=== PATIENT | male | born 1970 | race African-American/Black ===

== ENCOUNTER 2022-04-01 23:27 | Inpatient (IN) | payer MEDICARE, OTHER, SELFPAY ==
--- NOTE | ~2022-04-01 | MR_ITS ---
EXAMINATION: MR MRCP wo/w con/w 3D wo ind DATE: 04/02/2022 12:10 INDICATION: Choledocholithiasis. Right upper quadrant abdominal pain. TECHNIQUE: Magnetic resonance imaging (MRI) of the abdomen was performed without and with 20 mL Multi Rayshawn intravenous contrast. Sequences included coronal T2-weighted FS FSE, coronal T2-weighted FSE, a xial T1-weighted LAVA, coronal FS FIESTA, axial dual-echo T1-weighted SPGR, coronal lava-FLEX, sagitt al T2-weighted FSE, axial T2-weighted FSE, and axial DWI. Thick-slab T2-weighted FSE images were obta ined for magnetic resonance cholangiopancreatography (MRCP). Maximum intensity projection 3-D reconst ructions of the volumetric data were created by the technologist. Postcontrast sequences included cor onal LAVA-flex and time course of axial T1-weighted LAVA. COMPARISON: CT 04/02/2022 FINDINGS: ABDOMEN MRI: The liver demonstrates periportal edema. The gallbladder is distended and contains sludg e. Gallbladder wall thickening is noted. There is fat stranding around the gallbladder. The spleen, p ancreas, and adrenal glands are normal. There are cysts in the kidneys measuring up to 9 mm on the le ft. There are no dilated loops of bowel. There are no pathologically enlarged lymph nodes. There is n o free intraperitoneal fluid. ABDOMEN MRCP: The common duct is normal in size and measures 6 mm. There is no choledocholithiasis. IMPRESSION: 1. Acute cholecystitis. 2. Normal common duct. No choledocholithiasis. Reviewed, dictated and finalized at location B.
--- NOTE | ~2022-04-01 | XR_ITS ---
EXAMINATION: XR chest 1V portable DATE: 04/02/2022 01:05 INDICATION: Dyspnea. Chest pain. TECHNIQUE: frontal view of the chest was obtained. COMPARISON: Chest CT dated 04/02/2022 FINDINGS: Right middle lobe opacity in the medial right lower lung zone with obscuration of the right heart bor karthikeyan with appearance on CT favoring atelectasis over pneumonia. No pleural effusion or pneumothorax. T he cardiomediastinal silhouette is within normal limits for AP technique. IMPRESSION: 1. Right middle lobe opacities with appearance on CT favoring atelectasis over pneumonia. Reviewed, dictated and finalized at location A.
--- NOTE | ~2022-04-01 | CT_ITS ---
EXAMINATION: CTA chest PE abdomen pel DATE: 04/02/2022 02:28 INDICATION: RUQ pain, SOB from pain, nausea, distention TECHNIQUE: Computed tomography angiography (CTA) of the chest was performed with 100 mL Omnipaque-350 intravenous contrast timed to evaluate the pulmonary arteries, followed by portal venous phase imagi ng of the abdomen and pelvis. Coronal maximum intensity projection 3D-reconstructions were created by the technologist. The dose-length product (DLP) was 2369.93 mGy-cm. Automated exposure control and i terative reconstruction technique were employed. COMPARISON: None. FINDINGS: CHEST: Lung parenchyma and airways: Volume loss and bronchiectasis in the right middle lobe. Scattered tree- in-bud opacities. Pleura: Unremarkable. Thoracic inlet, axillae and chest wall: Unremarkable. Thoracic aorta: Normal. Mediastinum: Normal. Heart and pericardium: Normal. Coronary artery calcifications: Absent. Thoracic bones: No acute osseous finding. Pulmonary arteries: Study quality: Adequate. No pulmonary emboli detected. ABDOMEN/PELVIS: Liver: Enlarged. Mild intrahepatic duct dilation. Biliary/Gallbladder: Dilated bladder with wall edema and hyperemia, as well as surrounding inflammato ry change no stone identified. No bile duct dilation. Pancreas: No mass or duct dilation. Spleen: Multiple hypodensities may represent cysts or hemangiomas Adrenals:No mass. Kidneys: Left upper pole cyst. Subcentimeter left lower pole hypodensity, too small to characterize. No suspicious mass, hydronephrosis, or calcification. GI tract: Mild antral wall edema, likely reactive to the gallbladder process No small or large bowel dilation. Normal appendix. Diverticulosis without diverticulitis. Mesentery/Peritoneum: No ascites, mass, or free air. Retroperitoneum: No mass. Pelvis: Bladder wall thickening, likely secondary to outlet compromise from prostatomegaly. Soft Tissues: Soft tissues and body wall unremarkable. Abdominopelvic bones: No acute osseous finding. IMPRESSION: No CT evidence of acute pulmonary embolus. Acute cholecystitis. Pulmonary opacities as can be seen wi th atypical infection (MAC, TB, fungal), ABPA, airways disease (CF, bronchiectasis), and aspiration. Discrepancy with the preliminary report, regarding the presence of tree-in-bud opacities in the lungs , reported telephonically to Dr. Gannon by Dr. Almanza at 9:41 PM on 04/02/2022. Reviewed, dictated and finalized at location K. IMPRESSION: No CT evidence of acute pulmonary embolus. Acute cholecystitis. Pulmonary opaci ties as can be seen with atypical infection (MAC, TB, fungal), ABPA, airways di sease (CF, bronchiectasis), and aspiration. Discrepancy with the preliminary report, regarding the presence of tree-in-bud opacities in the lungs, reported telephonically to Dr. Gannon by Dr. Almanza at 9:4 1 PM on 04/02/2022.
[2022-04-01 23:41] VITALS: BP 151/84; PULSE 89; RESP 20; TEMP 36.8; O2SAT 97
[2022-04-02] VITALS (26 sets, daily range): BP systolic 127–154; BP diastolic 70–83; PULSE 57–85; RESP 17–32; TEMP 35.8–36.7; O2SAT 79–100; BMI 42.3
--- NOTE | 2022-04-02 00:27 | ED.ABDPAIN ---
HPI - Abdominal Pain General Chief Complaint: Abdominal Pain Stated Complaint: RUQ pain, back pain Time Seen by Provider: 04/02/22 00:23 Source: RN notes reviewed History of Present Illness HPI narrative: Patient presents emergency room from home for abdominal pain. Patient states for the past 2 days has had pain in his right upper abdomen that radiates around to his back. Pain is described as sharp and stabbing and makes patient feel short of breath he states the pain is worse when he takes a deep breath. He denies having any fevers or chills he denies any nausea vomiting or diarrhea. He states that the pain has been constant for the past 2 days he states that he went to [facility] yesterday had a CT scan and lab work that was all normal on him at that time states he took Tylenol earlier this evening for the pain Related Data Home Medications Medication Instructions Recorded Confirmed metformin 1,000 mg tablet mg 04/02/22 methocarbamol 750 mg tablet mg 04/02/22 pantoprazole 40 mg tablet,delayed mg PO 04/02/22 release sildenafil 100 mg tablet mg 04/02/22 valsartan 160 mg tablet mg 04/02/22 Allergies Allergy/AdvReac Type Severity Reaction Status Date / Time No Known Allergies Allergy Verified 04/02/22 00:18 Review of Systems Review of Systems: Gen.: Denies fevers or chills Eyes: Denies eye pain or visual change ENT: Denies congestion Respiratory: Reports shortness of breath denies cough CV: Denies chest pain or palpitations GI: D see HPI Musculoskeletal: Denies back pain or muscle pain Neuro: Denies numbness, tingling, weakness or focal weakness Skin: Denies rash Except as documented, all other systems reviewed and negative [facility] Past Medical History Medical History (Updated 04/02/22 @ 05:28 by Norman Louis DO) Diabetes mellitus HTN (hypertension) Social History Social History (Updated 04/02/22 @ 05:04 by Norman Louis DO) Smoking status: Never smoker Exam Narrative: APPEARANCE: No acute distress, nontoxic, resting in bed HEENT: Normocephalic, atraumatic, OMM RESPIRATORY: No respiratory distress, clear to auscultation bilaterally with no rhonchi wheezing or rales CARDIOVASCULAR: RRR s murmur ABDOMINAL: Soft nondistended tender palpation epigastric and right upper quadrant and left upper quadrant no tenderness of the right lower quadrant left lower quadrant no rebound or guarding MUSCULOSKELETAl: Moves all extremities. No clubbing, cyanosis or edema. NEURO: Awake and alert. Following commands, speech normal, no focal deficits SKIN:: Warm, dry. Normal Color PSYCHIATRIC: Normal affect/mood Course Course Emergency Course: Discussed with Dr. Baires for surgery presentation work-up agrees with consult recommends patient started on Zosyn Discussed with Dr. Bean agrees with admission discussed the patient's lung x-ray and at this time feel this is most likely just inflammation secondary to his cholecystitis Discussed with patient and family results of workup and diagnosis. Discussed need for admission. Patient and family understand and agree to current treatment plan Vital Signs Vital signs: Vital Signs Temperature 98.3 F 04/01/22 23:41 Pulse Rate 89 04/01/22 23:41 Respiratory Rate 20 04/01/22 23:41 Blood Pressure 151/84 H 04/01/22 23:41 Pulse Oximetry 97 04/01/22 23:41 Oxygen Delivery Room Air 04/01/22 23:41 Temperature 98.3 F 04/01/22 23:41 Pulse Rate 78 04/02/22 04:30 Respiratory Rate 24 H 04/02/22 04:30 Blood Pressure 145/83 H 04/02/22 02:01 Pulse Oximetry 92 04/02/22 04:30 Oxygen Delivery Room Air 04/01/22 23:41 MDM - Abdominal Pain Lab Data Result diagrams: 04/02/22 00:34 04/02/22 00:34 Labs: Lab Results 04/02/22 04/02/22 04/02/22 Range/Units 00:34 00:34 00:34 WBC 6.9 (4.5-10.0) K/mm3 RBC 4.69 (4.6-6.20) M/mm3 Hgb 12.1 L (14.0-18.0) g/dL Hct 38.3 L (42
[2022-04-02] MEDS: SODIUM CHLORIDE 0.9% IV 1,000 ML 999 ML IV CONT (00:41)
[2022-04-02] MEDS: KETOROLAC 30 MG/ML VIAL (*BKC) IV PUSH (00:41)
[2022-04-02 00:42] LABS: Appearance Urine Clear (Clear); Basophils Percent Auto 0.3 % (0.2-1.2); Bilirubin Urine 3+ (Negative); Blood Urine Negative (Negative); Color Urine Amber (Yellow); Eosinophils Absolute Auto 0.1 K/mm3 (0-0.3); Eosinophils Percent Auto 1.7 % (0-4.4); Glucose Urine UA Trace mg/dL (Negative); Hematocrit 38.3 % (42.0-52.0); Hemoglobin 12.1 g/dL (14.0-18.0); Immature Granulocyte Absolute 0.03 K/mm3 (0.00-0.031); Immature Granulocyte Percent A 0.4 % (0-0.5); Ketones Urine Trace mg/dL (Negative); Leukocyte Esterase Ur Negative LEU/UL (Negative); Lymphocytes Absolute Auto 0.98 K/mm3 (0.9-3.2); Lymphocytes Percent Auto 14.3 % (18.3-44.2); Mean Corpuscular HGB Conc 31.6 g/dl (32-36); Mean Corpuscular Hemoglobin 25.8 pg (26-34); Mean Corpuscular Volume 81.7 fl (80-100); Mean Platelet Volume 9.6 fl (7.4-10.4); Monocytes Absolute Auto 0.7 K/mm3 (0.1-0.6); Monocytes Percent Auto 9.6 % (2.6-8.5); Neutrophils Absolute Auto 5.1 K/mm3 (1.3-6.7); Neutrophils Percent Auto 73.7 % (45.5-73.1); Nitrate Urine Negative (Negative); Platelet Count Result 318 k/mm3 (150-375); Protein Urine 2+ mg/dL (Negative); Red Blood Count 4.69 M/mm3 (4.6-6.20); Red Cell Distribution Width 15.1 % (11.5-14.5); Specific Grav Ur 1.015 (1.001-1.035); Urobilinogen Urine >=8.0 mg/dL (<2.0); White Blood Count 6.9 K/mm3 (4.5-10.0); pH Urine 8.5 (5.0-9.0)
[2022-04-02 00:48] LABS: Mucus Urine Rare /lpf; RBC Urine 0-2 /hpf (0-2); Squamous Epithelial Cell Urine Rare /hpf (Few); WBC Urine 0-3 /hpf
[2022-04-02 00:51] LABS: Alanine Aminotransferase 432 U/L (6-50); Albumin Level 4.2 g/dL (3.5-5.1); Alkaline Phosphatase 305 U/L (38-126); Anion Gap 7 mmol/L (8-16); Aspartate Amino Transferase 591 U/L (17-59); Bilirubin,Total 2.3 mg/dL (0.2-1.3); Blood Urea Nitrogen 13 mg/dL (9-20); Calcium 8.9 mg/dL (8.4-10.2); Carbon Dioxide 31 mmol/L (22-30); Chloride 100 mmol/L (98-107); Estimated Glomerular Filt Rate > 60; Glucose 158 mg/dL (65-110); Lipase 67 U/L (23-300); Potassium 3.8 mmol/L (3.4-5.0); Sodium 138 mmol/L (137-145)
[2022-04-02 01:02] LABS: D Dimer 1.11 ug/mL (<0.48)
[2022-04-02 01:04] LABS: Add Urine Microscopic? YES
[2022-04-02 01:59] LABS: SARS-CoV-2 RNA PCR Negative
[2022-04-02] MEDS: MORPHINE SULFATE (*CRX) 4 MG/ML INJ IV PUSH ×2 (04:22→08:11)
[2022-04-02] MEDS: SODIUM CHLORIDE 0.9% IV 1,000 ML 125 ML IV CONT ×2 (06:31→16:47)
--- NOTE | 2022-04-02 06:36 | ADMGEN ---
This patient, Mark Luna Jr., was admitted to [facility] S[facility] Room 326-01. Patient/family oriented to hospital policies and general routines including ID bracelet, bed and alarms, visiting hours, pain management, procedures, bathroom and other care routines, personal items, smoking policy, room service/diet, and visiting hours. Information on how to activate the Rapid Response Team has been discussed. Patient/Family are encouraged to report perceived risks to care and to ask questions if they do not understand what they are told or what they should do.
[2022-04-02 06:51] LABS: Glucose Point of Care 115 mg/dl (65-105)
[2022-04-02 08:25] LABS: Glucose Point of Care 99 mg/dl (65-105)
[2022-04-02] MEDS: methocarbamoL 750 MG TABLET PO (08:58)
[2022-04-02] MEDS: metFORMIN HCL 500 MG TABLET 1000 MG PO (08:58)
[2022-04-02] MEDS: PANTOPRAZOLE SODIUM IV 40 MG VIAL IV PUSH (08:58)
[2022-04-02] MEDS: VALSARTAN 160 MG TABLET PO (08:58)
[2022-04-02 09:14] LABS: Hemoglobin A1C 6.7 % (<5.7)
--- NOTE | 2022-04-02 09:37 | PM.CNGS ---
Assessment and Plan Assessment and plan (1) Acute cholecystitis: Code(s): K81.0 - Acute cholecystitis Status: Acute Assessment and Plan: exam largely benign at his point, clears to low fat diet, IV abx, will need interval cholecystectomy (2) Elevated liver enzymes: Code(s): R74.8 - Abnormal levels of other serum enzymes Status: Acute Assessment and Plan: will get MRCP to r/o biliary obstruction, trend labs (3) Diabetes mellitus: Code(s): E11.9 - Type 2 diabetes mellitus without complications Status: Acute Assessment and Plan: stable, mgmt per primary team History of Present Illness Consult details Consult date: 04/02/22 Reason for consult: abdominal pain Requesting physician: Nhi Bean DO Narrative: Pt is a 51 y/o M c h/o DM, HTN, DIONICIO presenting to ED c/o worsening RUQ, epigastric abd pain c radiation to his back. Pt reports pain is constant and sharp. Pt reports pain is worse be deep breath. Pt c poor appetite but no N/V. Pt does report some bloating. Pt denies f/c, previous episodes. Review of Systems Constitutional: Constitutional: Reports as per HPI, Denies anorexia, Denies body ache(s), Denies chills, Reports fatigue, Denies fever(s), Reports lethargy, Reports poor appetite, Denies weakness, Denies weight gain and Denies weight loss Eyes: Eyes: Reports no additional eye complaints ENT: Reports system reviewed and no additional complaints, except as documented Cardiovascular: Cardiovascular: Reports no additional cardiovascular complaints Respiratory: Respiratory: Reports no additional respiratory complaints Gastrointestinal: Gastrointestinal: Reports as per HPI, Reports abdominal pain, Reports bloating, Reports GI cramping, Reports early satiety, Reports heartburn, Denies diarrhea, Denies loose stools, Denies nausea and Denies vomiting Genitourinary: Genitourinary: Reports no additional male genitourinary complaints Musculoskeletal: Musculoskeletal: Reports no additional musculoskeletal complaints Integumentary/Breasts: Skin/Breast: Reports system reviewed and no additional complaints, except as docu Neurologic: Reports system reviewed and no additional complaints, except as documented Psychiatric: Psychiatric: Reports no additional psychiatric complaints Endocrine: Endocrine: Reports no additional endocrine complaints Hematologic/Lymphatic: Hematologic/Lymphatic: Reports no additional hematologic/lymphatic complaints Allergic/Immunologic: Allergic/Immunologic: Reports no additional allergic/immunologic complaints [facility] Past Medical History Medical History Diabetes mellitus HTN (hypertension) Social History Social History Smoking status: Former smoker Second hand tobacco smoke exposure: No Alcohol intake: current Drinks per week: 1 Substance use: former Spiritual care concerns: No Meds Home Medications and Allergies Home Medications Medication Instructions Recorded Confirmed Type metformin 1,000 mg tablet 1,000 mg PO DAILY 04/02/22 04/02/22 History methocarbamol 750 mg tablet 750 mg PO DAILY 04/02/22 04/02/22 History pantoprazole 40 mg tablet,delayed 40 mg PO DAILY 04/02/22 04/02/22 History release sildenafil 100 mg tablet 100 mg PO DAILY PRN Erectile 04/02/22 04/02/22 History Dysfunction valsartan 160 mg tablet 160 mg PO DAILY 04/02/22 04/02/22 History Allergies Allergy/AdvReac Type Severity Reaction Status Date / Time No Known Allergies Allergy Verified 04/02/22 00:18 Vital Signs Vital Signs - 24 hr 04/01/22 23:41 04/02/22 00:29 04/02/22 00:30 Temperature 36.8 C Pulse Rate 89 80 78 Respiratory Rate 20 17 17 Blood Pressure 151/84 H Pulse Oximetry 97 98 96 Oxygen Delivery Room Air Oxygen Flow Rate 04/02/22 00:49 04/02/22 01:02 04/02/22 01:13 Temperature Pulse
[2022-04-02 11:25] LABS: Glucose Point of Care 121 mg/dl (65-105)
--- NOTE | 2022-04-02 12:08 | PM.IMHP ---
H&P: HPI History of Present Illness Date/Time: 04/02/22 12:08 Chief Complaint: abdominal pain Narrative: ED-HPI narrative: Patient presents emergency room from home for abdominal pain.? Patient states for the past 2 days has had pain in his right upper abdomen that radiates around to his back.? Pain is described as sharp and stabbing and makes patient feel short of breath he states the pain is worse when he takes a deep breath.? He denies having any fevers or chills he denies any nausea vomiting or diarrhea.? He states that the pain has been constant for the past 2 days he states that he went to [facility] yesterday had a CT scan and lab work that was all normal on him at that time states he took Tylenol earlier this evening for the pain. patient is a 51 year morbidly obese male presented with a right upper quadrant pain radiating to the back, worse with deep breath however denies any nausea, vomiting fever or chills, patient is seen by General surgery does not suspect acute cholecystitis started the patient on low-fat diet, to further evaluate patient will have MRCP, will monitor patient overnight and further recommendation to follow. patient admitted as an observation status Review of Systems Constitutional: Constitutional: Reports as per HPI, Denies anorexia, Denies body ache(s), Denies chills, Reports fatigue, Denies fever(s), Reports lethargy, Reports poor appetite, Denies weakness, Denies weight gain and Denies weight loss PMFSH Past Medical History Medical History Diabetes mellitus HTN (hypertension) Social History Social History Smoking status: Former smoker Second hand tobacco smoke exposure: No Alcohol intake: current Drinks per week: 1 Substance use: former Spiritual care concerns: No Meds Home Medications and Allergies Home Medications Medication Instructions Recorded Confirmed Type metformin 1,000 mg tablet 1,000 mg PO DAILY 04/02/22 04/02/22 History methocarbamol 750 mg tablet 750 mg PO DAILY 04/02/22 04/02/22 History pantoprazole 40 mg tablet,delayed 40 mg PO DAILY 04/02/22 04/02/22 History release sildenafil 100 mg tablet 100 mg PO DAILY PRN Erectile 04/02/22 04/02/22 History Dysfunction valsartan 160 mg tablet 160 mg PO DAILY 04/02/22 04/02/22 History Allergies Allergy/AdvReac Type Severity Reaction Status Date / Time No Known Allergies Allergy Verified 04/02/22 00:18 Vital Signs Vital Signs - 24 hr 04/01/22 23:41 04/02/22 00:29 04/02/22 00:30 Temperature 98.3 F Pulse Rate 89 80 78 Respiratory Rate 20 17 17 Blood Pressure 151/84 H Pulse Oximetry 97 98 96 Oxygen Delivery Room Air Oxygen Flow Rate 04/02/22 00:49 04/02/22 01:02 04/02/22 01:13 Temperature Pulse Rate 79 67 76 Respiratory Rate 24 H 24 H 26 H Blood Pressure 137/70 Pulse Oximetry 96 96 Oxygen Delivery Oxygen Flow Rate 04/02/22 01:15 04/02/22 01:17 04/02/22 01:31 Temperature Pulse Rate 80 85 78 Respiratory Rate 31 H 32 H 22 H Blood Pressure 154/74 H Pulse Oximetry 94 92 97 Oxygen Delivery Oxygen Flow Rate 04/02/22 01:32 04/02/22 01:45 04/02/22 01:46 Temperature Pulse Rate 75 70 74 Respiratory Rate 25 H 25 H 24 H Blood Pressure 142/81 H Pulse Oximetry 98 96 94 Oxygen Delivery Oxygen Flow Rate 04/02/22 02:00 04/02/22 02:01 04/02/22 02:56 Temperature Pulse Rate 69 63 67 Respiratory Rate 23 H 21 H 18 Blood Pressure 145/83 H Pulse Oximetry 96 95 90 Oxygen Delivery Oxygen Flow Rate 04/02/22 03:05 04/02/22 03:21 04/02/22 03:30 Temperature Pulse Rate 68 57 L 71 Respiratory Rate 23 H 20 18 Blood Pressure Pulse Oximetry 97 96 Oxygen Delivery Oxygen Flow Rate 04/02/22 03:45 04/02/22 04:00 04/02/22 04:15 Temperature Pulse Rate 71 66 73 Respiratory Rate
[2022-04-02 16:36] LABS: Glucose Point of Care 163 mg/dl (65-105)
[2022-04-02 21:39] LABS: Glucose Point of Care 198 mg/dl (65-105)
[2022-04-03 06:00] VITALS: BP 140/77; PULSE 80; RESP 18; TEMP 36.3; O2SAT 97
[2022-04-03] MEDS: SODIUM CHLORIDE 0.9% IV 1,000 ML 125 ML IV CONT (06:25)
[2022-04-03 06:29] LABS: Basophils Percent Auto 0.4 % (0.2-1.2); Eosinophils Absolute Auto 0.6 K/mm3 (0-0.3); Eosinophils Percent Auto 8.2 % (0-4.4); Hematocrit 36.9 % (42.0-52.0); Hemoglobin 11.3 g/dL (14.0-18.0); Immature Granulocyte Absolute 0.04 K/mm3 (0.00-0.031); Immature Granulocyte Percent A 0.6 % (0-0.5); Lymphocytes Absolute Auto 1.37 K/mm3 (0.9-3.2); Mean Corpuscular HGB Conc 30.6 g/dl (32-36); Mean Corpuscular Hemoglobin 25.7 pg (26-34); Mean Corpuscular Volume 83.9 fl (80-100); Mean Platelet Volume 9.8 fl (7.4-10.4); Monocytes Absolute Auto 0.5 K/mm3 (0.1-0.6); Monocytes Percent Auto 7.4 % (2.6-8.5); Neutrophils Absolute Auto 4.3 K/mm3 (1.3-6.7); Neutrophils Percent Auto 63.4 % (45.5-73.1); Platelet Count Result 302 k/mm3 (150-375); Red Cell Distribution Width 15.5 % (11.5-14.5); White Blood Count 6.9 K/mm3 (4.5-10.0)
[2022-04-03 06:54] LABS: Alanine Aminotransferase 350 U/L (6-50); Albumin Level 3.7 g/dL (3.5-5.1); Alkaline Phosphatase 303 U/L (38-126); Anion Gap 8 mmol/L (8-16); Aspartate Amino Transferase 215 U/L (17-59); Bilirubin,Total 2.3 mg/dL (0.2-1.3); Blood Urea Nitrogen 8 mg/dL (9-20); Calcium 8.3 mg/dL (8.4-10.2); Carbon Dioxide 25 mmol/L (22-30); Chloride 105 mmol/L (98-107); Estimated CRCL calculation 98 ml/min; Estimated Glomerular Filt Rate > 60; Glucose 141 mg/dL (65-110); Potassium 3.9 mmol/L (3.4-5.0); Sodium 138 mmol/L (137-145)
[2022-04-03 08:09] LABS: Glucose Point of Care 142 mg/dl (65-105)
[2022-04-03] MEDS: PANTOPRAZOLE SODIUM IV 40 MG VIAL IV PUSH (08:22)
[2022-04-03] MEDS: methocarbamoL 750 MG TABLET PO (08:23)
[2022-04-03] MEDS: VALSARTAN 160 MG TABLET PO (08:23)
[2022-04-03] MEDS: metFORMIN HCL 500 MG TABLET 1000 MG PO (08:23)
--- NOTE | 2022-04-03 09:16 | PM.PNGS ---
Progress Note: A&P Assessment and Plan (1) Acute cholecystitis: Code(s): K81.0 - Acute cholecystitis Status: Acute Assessment and Plan: long d/w pt and he wants to try to go home and come back as outpt for interval cholecystectomy, will restart low fat diet, would dc c po abx, pain meds, will try to do interval gwendolyn in next few wks (2) Elevated liver enzymes: Code(s): R74.8 - Abnormal levels of other serum enzymes Status: Acute Assessment and Plan: MRCP shows CBD normal, likely secondary to inflammation from gallbladder, recheck prior to OR (3) Diabetes mellitus: Code(s): E11.9 - Type 2 diabetes mellitus without complications Status: Acute Assessment and Plan: needs good control perioperatively Subjective Subjective Date/Time Seen: 04/03/22 09:16 feels better today, jean low fat diet yesterday Review of Systems Review of Systems: All systems reviewed & are unremarkable except as noted in HPI and below Exam Const: General: cooperative, comfortable and no acute distress Resp: Auscultation: clear to auscultation bilaterally Cardio: Rate: regular rate Rhythm: regular rhythm GI: Inspection: normal to inspection and distended GI Palp: Yes abdominal tenderness, Yes Soft to palpation, Yes Tenderness to palpation present (GI), No Guarding due to palpation present (GI) and No Rigid due to palpation Objective Data Vital Signs Vital Signs: Vital Signs - 24 hr 04/02/22 14:00 04/02/22 22:00 04/02/22 20:00 Temperature 36.6 C 36.7 C Pulse Rate 79 85 Respiratory Rate 20 18 Blood Pressure 127/73 142/72 H Pulse Oximetry 98 96 Oxygen Delivery Room Air 04/03/22 06:00 Temperature 36.3 C L Pulse Rate 80 Respiratory Rate 18 Blood Pressure 140/77 Pulse Oximetry 97 Oxygen Delivery Intake/Output Intake/Output: Intake & Output 03/31/22 04/01/22 04/02/22 04/03/22 23:59 23:59 23:59 23:59 Intake Total 3538 1050 Balance 3538 1050 Meds/Results Medications: Active Medications Generic Name Dose Route Start Last Admin Trade Name Freq PRN Reason Stop Dose Admin Dextrose 12.5 gm 04/02/22 08:23 Dextrose 50% 25 Gm/50 Ml Syringe IV PUSH PRN PRN Hypoglycemia Protocol Glucagon 1 mg 04/02/22 08:23 Glucagon For Inj 1 Mg Vial IM PRN PRN Hypoglycemia Protocol Glucose 15 gm 04/02/22 08:23 Glucose Oral Gel 15 Gm Of Glucse In 37.5 Gm Tube PO PRN PRN Hypoglycemia Protocol Piperacillin/Tazobactam/Dextrose 3.375 gm in 50 mls @ 100 mls/hr 04/02/22 11:00 04/03/22 05:57 Zosyn 3.375 Gm/D5w 50ml Pm IVPB 100 mls/hr Q6HR NEELIMA Administration Sodium Chloride 1,000 mls @ 125 mls/hr 04/02/22 05:20 04/03/22 06:25 Normal Saline Iv IV CONT 125 mls/hr .Q8H NEELIMA Administration Dextrose 1,000 mls @ 100 mls/hr 04/02/22 08:23 Dextrose 5% 1,000 Ml IVPB PRN PRN Hypoglycemia Protocol Insulin Aspart 2 - 5 units 04/02/22 12:00 04/03/22 08:17 Insulin Aspart (*Bkc) 100 Units/Ml SUB-Q Not Given TIDWM NEELIMA Protocol Metformin HCl 1,000 mg 04/02/22 09:00 04/03/22 08:23 Metformin Hcl 500 Mg Tablet PO 1,000 mg DAILY@0800 NEELIMA Administration Methocarbamol 750 mg 04/02/22 09:00 04/03/22 08:23 Methocarbamol 750 Mg Tablet PO 750 mg DAILY NEELIMA Administration Morphine Sulfate 4 mg 04/02/22 07:00 04/02/22 08:11 Morphine Sulfate (*Crx) 4 Mg/Ml Inj IV PUSH 4 mg Q2H PRN Administration Pain Rated 7-10 Ondansetron HCl 4 mg 04/02/22 05:19 Ondansetron Inj 4 Mg/2 Ml Vial IV PUSH Q4H PRN Nausea Pantoprazole Sodium 40 mg 04/02/22 09:00 04/03/22 08:22 Pantoprazole Sodium Iv 40 Mg Vial IV PUSH 40 mg QAM NEELIMA Administration Valsartan 160 mg 04/02/22 09:00 04/03/22 08:23 Valsartan 160 Mg Tablet PO 160 mg DAILY NEELIMA Administration Radiology Results: ITS Impressions Chest X-Ray 04/02/22 12:16 IMPRESS
[2022-04-03 11:45] LABS: Glucose Point of Care 143 mg/dl (65-105)
--- NOTE | 2022-04-03 13:54 | PM.DS ---
DS: Admitting Diagnosis Discharge Date 04/03/2022 Admitting Diagnosis abdominal pain DS: Discharge Diagnosis Discharge Diagnosis (1) Acute cholecystitis: Code(s): K81.0 - Acute cholecystitis Status: Acute Assessment and Plan: ED-HPI narrative: Patient presents emergency room from home for abdominal pain.? Patient states for the past 2 days has had pain in his right upper abdomen that radiates around to his back.? Pain is described as sharp and stabbing and makes patient feel short of breath he states the pain is worse when he takes a deep breath.? He denies having any fevers or chills he denies any nausea vomiting or diarrhea.? He states that the pain has been constant for the past 2 days he states that he went to [facility] yesterday had a CT scan and lab work that was all normal on him at that time states he took Tylenol earlier this evening for the pain. patient is a 51 year morbidly obese male presented with a right upper quadrant pain radiating to the back, worse with deep breath however denies any nausea, vomiting fever or chills, patient is seen by General surgery does not suspect acute cholecystitis started the patient on low-fat diet, to further evaluate patient will have MRCP, will monitor patient overnight and further recommendation to follow. (2) Elevated liver enzymes: Code(s): R74.8 - Abnormal levels of other serum enzymes Status: Acute Assessment and Plan: most likely secondary cholelithiasis (3) Diabetes mellitus: Code(s): E11.9 - Type 2 diabetes mellitus without complications Status: Acute Assessment and Plan: will continue home regimen and monitor with sliding scale (4) HTN (hypertension): Code(s): I10 - Essential (primary) hypertension Status: Acute Assessment and Plan: will continue home regimen DS: Summary Hospital Course Reason for hospitalization: ED-HPI narrative: Patient presents emergency room from home for abdominal pain.? Patient states for the past 2 days has had pain in his right upper abdomen that radiates around to his back.? Pain is described as sharp and stabbing and makes patient feel short of breath he states the pain is worse when he takes a deep breath.? He denies having any fevers or chills he denies any nausea vomiting or diarrhea.? He states that the pain has been constant for the past 2 days he states that he went to [facility] yesterday had a CT scan and lab work that was all normal on him at that time states he took Tylenol earlier this evening for the pain. patient is a 51 year morbidly obese male presented with a right upper quadrant pain radiating to the back,? worse with deep breath however denies any nausea, vomiting fever or chills,? patient is seen by General surgery does not suspect acute cholecystitis started the patient on low-fat diet, to further evaluate patient will have MRCP,? will monitor patient overnight and further recommendation to follow. Hospital Course: patient remains clinically stable seen by surgery service and patient has decided to have a surgeries outpatient, will continue low-fat diet and patient able to tolerate without any difficulty will discharge the patient home today Time Spent with Patient Time attestation: Total time spent providing and/or coordinating discharge services: Exam Narrative: morbidly obese Patient is comfortable, NAD HEENT: eyes are clear and none icteric LUNGS:CTA HEART: RR S1S2 ABD: obese diffusely tender Lower extremities: no edema SKIN: nonjaundiced Neuro: grossly intact. DS: Data Data Completed and Pending Labs on day of discharge: Labs from last 24 hours 04/03/22 04/03/22 04/03/22 11:31 08:07 05:52 WBC RBC Hgb Hct MCV MCH MCHC RDW Plt Count MPV Immature Gran % (Auto) Neut % (Auto) Lymph % (Auto) [place] % (Auto) Eos % (Auto
[2022-04-03 14:00] VITALS: BP 134/77; PULSE 78; RESP 14; TEMP 36.4; O2SAT 98
== END 2022-04-03 14:20 | disposition home or self-care (01) | DRG 446 ==
LOC: ANHED 04-02 05:45 → ANH3MEDSUR 04-02 06:20
PROVIDERS: Admitting Provider Internal Medicine; Emergency Provider Emergency Medicine; PCP Internal Medicine; Visit Provider Family Medicine
DX: K81.0 Acute cholecystitis (principal); E11.9 Type 2 diabetes mellitus without complications; I10 Essential (primary) hypertension; Z20.822 Contact with and (suspected) exposure to COVID-19; Z87.891 Personal history of nicotine dependence
CPT/HCPCS: 36415; 71045; 71275; 74177; 74183; 76376; 80053; 81001; 82948; 83036; 83690; 85025; 85380; 96365; 96375; 99285; A9270; A9577; C9113; C9803; J1885; J2270; J2543; J7030; Q9967; U0003; U0005

== ENCOUNTER 2022-05-02 08:59 | Outpatient (CLI) | payer OTHER, MEDICAID, SELFPAY ==
--- NOTE | 2022-05-02 09:28 | ECG_ITS ---
Measurements Intervals [place] Rate: 80 P: 6 SC: 154 QRS: 80 QRSD: 107 T: 26 QT: 357 QTc: 413 Interpretive Statements SINUS RHYTHM CANNOT RULE OUT SEPTAL INFARCT, AGE INDETERMINATE BORDERLINE T WAVE ABNORMALITY- INFERIOR LEADS BASELINE ARTIFACT- V2 ABNORMAL ECG NO PREVIOUS ECG AVAILABLE FOR COMPARISON Electronically Signed On 05-02-2022 10:20:54 CDT by Brad Swanson D.O.
[2022-05-02 10:31] LABS: Amylase 70 U/L (30-110)
[2022-05-02 10:32] LABS: Alanine Aminotransferase 21 U/L (6-50); Albumin Level 4.3 g/dL (3.5-5.1); Alkaline Phosphatase 135 U/L (38-126); Aspartate Amino Transferase 18 U/L (17-59); Bilirubin,Total 0.3 mg/dL (0.2-1.3)
== END 2022-05-02 09:00 | disposition home or self-care (01) ==
LOC: ANHSURGERY 09:06
PROVIDERS: Nurse Practitioner Family; PCP Internal Medicine; Visit Provider Surgery
DX: R74.8 Abnormal levels of other serum enzymes (principal); K81.0 Acute cholecystitis; E11.9 Type 2 diabetes mellitus without complications; I10 Essential (primary) hypertension; R94.31 Abnormal electrocardiogram [ECG] [EKG]
CPT/HCPCS: 36415; 80076; 82150; 86850; 86900; 86901; 93005

== ENCOUNTER 2022-05-03 00:59 | Day surgery (SDC) | payer OTHER, SELFPAY ==
[2022-05-01 08:42] VITALS: BMI 38.7
--- NOTE | 2022-05-01 08:50 | PC.NURSE ---
Report to the Outpatient Waiting Room, entrance under the green pavilion located off [facility], at time 10:00 on date 05/03/22. Planned Procedure Time: 12:00. Time changes happen often and if your time is changed the preop area will call you the afternoon before. - You and your visitor will be asked to self-screen and do not enter if you have any COVID symptoms. - We encourage only one visitor and NO visitors under age 16 are allowed at this time. Your visitor will receive communication by the phone number that is given day of service. - The patient visitor is requested to social distance or may leave the building when not with patient due to restrictions. - A mask is OPTIONAL within the hospital. Patients may have clear liquids (water, carbonated beverages, clear teas, apple juice) until 3 hours prior to surgery (9:00) with a maximum of 20 ounces. - No food from midnight until time of surgery Take the following medications with a SIP of water the morning of surgery: 1/2 AM INSULIN DOSE (TAKE 20 UNITS) Medications to discontinue per physician: N/A Date to take last dose: N/A Please no make-up, nail solomon islander, hairspray, perfume, deodorant, or body powder the day of surgery. No jewelry (including any body piercings) or valuables the day of surgery, leave them at home. Please take a shower or bath the night before, or the morning of, surgery with an antibacterial soap. Wear comfortable, loose fitting clothing. - Jewelry must be removed prior to entering the operating room. Rings and piercings that are not removed may be cut off. - The hospital will not accept responsibility for valuables. - Please leave all valuables, including medications, at home the day of surgery. If you are going home after surgery, a licensed commercial collections driver must drive you home. - NO public transportation without another adult. - We recommend that an adult stay with you for 24 hours following discharge. - We also recommend that you do not drive, make important decision, drink alcoholic beverages, or take any drugs that were not prescribed by your health care provider for at least 24 hours after your discharge time. Follow any additional instructions given to you from your surgeon. If you or anyone in your household have experienced Covid symptoms in the past week, please notify your surgeon or the nurse liaison at the phone number below for possible testing. Telephone instructions given to PT & and asked if any additional questions and then verbalized understanding. Patient advised to call surgeon office or pre surgery nurse liaison [phone] if any additional questions.
[2022-05-03] VITALS (8 sets, daily range): BP systolic 111–133; BP diastolic 53–77; PULSE 65–94; RESP 12–20; TEMP 36.1–36.9; O2SAT 93–99
[2022-05-03] MEDS: LACTATED RINGERS 1,000 ML 30 ML IV CONT ×2 (10:53→13:31)
[2022-05-03] MEDS: ACETAMINOPHEN 500 MG TABLET 1000 MG PO (10:54)
[2022-05-03] MEDS: KETOROLAC 15 MG/ML VIAL (*BKC) IV PUSH (10:54)
[2022-05-03 10:56] LABS: Glucose Point of Care 133 mg/dl (65-105)
--- NOTE | 2022-05-03 11:28 | WPDANESEPPF ---
Anes - Initial Pre Proc Eval Procedure: Operation Date: 05/03/22 12:00 Proposed Procedures p Laparoscopic Cholecystectomy - Esthela Baires MD Date/Time: 05/03/22 11:28 Surgeon: Esthela Baires MD Pre Op Diagnosis: acute cholecystitis Patient Data Age: 51 Gender: M Height: 1.73 m Weight: 120 kg Last Vital Signs Temp 36.1 C L 05/03/22 10:19 Pulse 94 05/03/22 10:19 Resp 20 05/03/22 10:19 BP 133/77 05/03/22 10:19 Pulse Ox 99 05/03/22 10:19 O2 Del Method Room Air 05/03/22 10:19 Allergies Allergy/AdvReac Type Severity Reaction Status Date / Time No Known Allergies Allergy Verified 05/01/22 08:38 Home Medications Medication Instructions Recorded Confirmed Type metformin 1,000 mg tablet 1,000 mg PO DAILY 04/02/22 05/01/22 History methocarbamol 750 mg tablet 750 mg PO DAILY 04/02/22 05/01/22 History pantoprazole 40 mg tablet,delayed 40 mg PO DAILY 04/02/22 05/01/22 History release sildenafil 100 mg tablet 100 mg PO DAILY PRN Erectile 04/02/22 05/01/22 History Dysfunction valsartan 160 mg tablet 160 mg PO DAILY 04/02/22 05/01/22 History hydrocodone 5 mg-acetaminophen 325 1 tablet PO Q6H PRN Pain Rated 4-6 04/03/22 05/01/22 Rx mg tablet #5 tabs insulin NPH-regular 70-30 U-100 40 unit subcut BID 05/01/22 05/01/22 History insulin 100 unit/mL subcutaneous pen semaglutide 0.25 mg or 0.5 mg (2 0.25 mg subcut WEEKLY 05/01/22 05/01/22 History mg/1.5 mL) subcutaneous pen injector (Ozempic) Laboratory Tests 05/03/22 10:51 POC Capillary Glucose 133 mg/dl H mg/dl (65-105) Patient hx anesthesia problems: none Family hx anesthesia problems: none Results Review: All pre-operative results and documents have been reviewed as part of the pre-operative evaluation. [facility] Past Medical History Medical History Diabetes mellitus HTN (hypertension) Social History Social History Years smoked: 20 Smoking status: Former smoker Tobacco type: cigarettes and cigars Second hand tobacco smoke exposure: No Smoking end date: 07/02/01 Alcohol intake: current Drinks per week: 1 Alcohol use details: RARE Substance use: former Substance use type: does not use Living arrangements: with family Spiritual care concerns: No Anes - Eval Final PreProcedure Day of Procedure 05/03/22 11:28 Patient weight: morbidly obese Heart: regular rate and rhythm Lungs: clear to auscultation Airway: Mallampati scale class III Neurological: alert and oriented Last oral intake: >/= 8 hours ASA classification: III Emergent: no Anesthetic plan: proceed Anesthesia type and monitoring: general ETT and standard monitoring Results Review: All pre-operative results and documents have been reviewed as part of the pre-operative evaluation. Informed Consent: The patient's anesthetic plan and its attendant risks and benefits were discussed with the patient/family/POA. Questions were solicited and answers provided to the satisfaction of the patient/family/POA.
--- NOTE | 2022-05-03 12:02 | WPDHPUPDATE1 ---
History and Physical Update Update Date/Time: 05/03/22 12:02 History and Physical has been reviewed, including an updated exam of the patient. There are NO changes in the patient's condition. Risks, benefits, and alternatives have been discussed and questions answered. Patient agrees to proceed with procedure.
[2022-05-03] MEDS: ceFAZolin 3 GM/D5W 100 ML 100 ML IVPB (12:09)
[2022-05-03] MEDS: BUPIVACAINE/EPINEPHRINE 0.25% 50 ML VIAL 30 ML INFILTRATE (12:36)
--- NOTE | 2022-05-03 13:16 | W.PM.PROC2 ---
Procedure Note - Detailed Date of Procedure 05/03/22 Pre-op Diagnosis acute cholecystitis Post-op Diagnosis Same Procedure Performed Laparoscopic cholecystectomy Surgeon Esthela Baires MD Anesthesia General Indications 51-year-old male presented to the hospital complaining of postprandial right upper quadrant abdominal pain associated with nausea and vomiting. Workup including imaging significant for acute cholecystitis, cholelithiasis. Pt initially underwent conservative tx c abx and now presenting for interval cholecystectomy Findings acute cholecystitis Description of Procedure The patient was taken to the operating room placed in the supine position. After adequate induction of general anesthesia, the patient was prepped and draped in normal sterile fashion. A time-out was then performed to verify the patient's identity as well as the procedure being performed. I then made a 5 mm incision in the infraumbilical region. Through this, a Veress needle was placed into the peritoneal cavity and CO2 gas was then insufflated. After adequate pneumoperitoneum was achieved, the Veress needle was removed and a 5 mm optiview trocar was placed through this incision under direct visualization. I then placed the laparoscope through this trocar site and under direct visualization placed a further 12 mm subxiphoid port as well as 2 additional 5 mm ports in the right upper abdomen. The gallbladder was then identified and was noted to be severely inflamed, distended. There was a moderate amount of adhesions to the gallbladder and these were taken down with the bovie cautery. I was able to place a grasper at the dome of the gallbladder and this was retracted anterior and cephalad up over the liver. A 2nd retractor was then placed at the infundibulum and retracted laterally, this allowed visualization of the triangle of [place]ot. I then was able to visualize the cystic duct in its entirety from its proximal insertion into the gallbladder, to its distal junction with the common hepatic/common bile duct junction. At this point, I carefully skeletonized the proximal cystic duct with the [place] dissector. I then clipped and transected the proximal cystic duct. Next I visualized the cystic artery. Again the artery was skeletonized, clipped, and transected. I then used the Bovie cautery to take down the peritoneal attachments of the gallbladder off the liver bed. This was somewhat difficult given the amount of inflammation in the posterior space. Once the gallbladder specimen was completely detached, an endo-pouch was placed through the 12 mm port site. I then placed the gallbladder specimen into the Endo pouch and removed the endo-pouch from the 12 mm port site. The specimen will now be sent to pathology for further review. I then copiously irrigated the right upper quadrant. Hemostasis was noted in the liver bed, the clips were noted to be in good position on both the cystic duct stump and the cystic artery stump. No other pathology was noted in the right upper quadrant. I then moved the laparoscope to the subxiphoid port. No iatrogenic injury or other pathology was noted in the lower abdomen. I then closed the 12 mm trocar site under direct visualization using the Cj cone and 0 Vicryl suture. At this point, the abdomen was desufflated and all ports removed. All port sites were then closed with 4.O Monocryl subcuticular sutures. Dermabond was placed on each incision. The patient tolerated the procedure well, was extubated in the operating room postoperative and will be transferred to the recovery room in stable condition Estimated Blood Loss 5 Drains No Packing No Pathology Yes Complications No immediate complications Condition Stable Disposition PACU [facility] Billing Surgery - Charge Forward: Surgery Billing
[2022-05-03 13:40] LABS: Glucose Point of Care 131 mg/dl (65-105)
== END 2022-05-03 15:25 | disposition home or self-care (01) ==
PROVIDERS: PCP Internal Medicine; Visit Provider Surgery
PROC: 0FT44ZZ Resection of Gallbladder, Percutaneous Endoscopic Approach (ICD-10-PCS; CPT 47562; principal; 2022-05-03 12:00)
DX: K81.0 Acute cholecystitis (principal); I10 Essential (primary) hypertension; E11.9 Type 2 diabetes mellitus without complications; Z87.891 Personal history of nicotine dependence; Z79.84 Long term (current) use of oral hypoglycemic drugs; Z79.4 Long term (current) use of insulin; Z79.899 Other long term (current) drug therapy; E66.01 Morbid (severe) obesity due to excess calories; Z68.41 Body mass index [BMI] 40.0-44.9, adult
CPT/HCPCS: 47562; 82948; 88304; A9270; J0330; J0690; J1100; J1170; J1885; J2250; J2370; J2405; J2704; J3010; J7030; J7120